=== PATIENT | female | born 1975 | race Hispanic/Latino ===

== ENCOUNTER 2018-02-04 08:31 | Inpatient (IN) | payer BC ==
[2018-01-31 15:59] LABS: BASOPHILS % (AUTO) 0.7 % (0.0-5.0); EOSINOPHILS % (AUTO) 4.7 % (0.0-8.0); HEMATOCRIT 31.5 % (36-48); LYMPHOCYTES % (AUTO) 25.2 % (21.0-51.0); MEAN CORPUSCULAR HEMOGLOBIN 28.1 pg (27.0-33.0); MEAN CORPUSCULAR HGB CONC 32.8 g/dL (32.0-36.0); MEAN CORPUSCULAR VOLUME 85.7 fL (79-99); MONOCYTES % (AUTO) 8.1 % (3.0-13.0); NEUTROPHILS % (AUTO) 61.3 % (40.0-77.0); PLATELET COUNT (AUTO) 315 K/uL (130-400); RED BLOOD CELL COUNT(AUTO) 3.67 MIL/uL (4.00-5.50); WHITE BLOOD COUNT (AUTO) 7.7 K/uL (4.8-10.8)
[2018-01-31 16:03] VITALS: BP 126/73
[2018-02-04] VITALS (19 sets, daily range): BP systolic 101–139; BP diastolic 58–84
[~2018-02-04] VITALS: Ht 160 cm; Wt 85.5 kg
[2018-02-04] MEDS: CEFAZOLIN SODIUM 1 GM VIAL IVP SCH ×2 (06:00→10:02)
[~2018-02-04 08:31] MED LIST: LACTATED RINGERS 1000ML 1,000 ML IV SCH
[2018-02-04] MEDS ORDERED: GLYCOPYRROLATE 0.2 MG/ML 5 ML VIAL ONE (09:37)
[2018-02-04] MEDS ORDERED: DEXAMETHASONE SOD PHOSPHATE 10MG/ML 1ML VIAL ONE (09:37)
[2018-02-04] MEDS ORDERED: LIDOCAINE PF 2% 5ML ABBOJECT ONE (09:37)
[2018-02-04] MEDS ORDERED: PROPOFOL 10 MG/ML 20ML VIAL IV ONE (09:38)
[2018-02-04] MEDS ORDERED: FENTANYL CITRATE PF 50 MCG/1 ML 2ML VIAL ONE ×3 (09:39→10:35)
[2018-02-04] MEDS ORDERED: MIDAZOLAM HCL 1 MG/ML 2ML VIAL ONE (09:39)
[2018-02-04] MEDS ORDERED: ROPIVACAINE 0.5% 5MG/ML 30ML IJ ONE (09:41)
[2018-02-04] MEDS ORDERED: LIDOCAINE HCL 4% LTA SOL 4 ML VIAL ONE (10:51)
[2018-02-04] MEDS ORDERED: BISACODYL 10 MG SUPP.RECT RC PRN (11:45)
[2018-02-04] MEDS ORDERED: MEPERIDINE-PF 25 MG/ML SYG ONE (11:53)
[2018-02-04] MEDS: PROMETHAZINE HCL 25 MG/ML 1ML AMPULE IM PRN ×2 (13:37→21:14)
[2018-02-04] MEDS: MEPERIDINE-PF 75 MG/ML SYG IM PRN ×3 (13:37→21:14)
[2018-02-04] MEDS: DEXTROSE 5%-LACTATED RINGERS 1,000 ML IV PRN ×2 (17:09→21:19)
[2018-02-05] VITALS (7 sets, daily range): BP systolic 111–146; BP diastolic 53–77
[2018-02-05] MEDS: ACETAMINOPHEN-CODEINE 300/30MG TAB PO PRN ×3 (04:08→16:06)
[2018-02-05 05:13] LABS: HEMATOCRIT 26.5 % (36-48); MEAN CORPUSCULAR HEMOGLOBIN 28.8 pg (27.0-33.0); MEAN CORPUSCULAR HGB CONC 33.7 g/dL (32.0-36.0); MEAN CORPUSCULAR VOLUME 85.6 fL (79-99); PLATELET COUNT (AUTO) 251 K/uL (130-400); RED CELL DISTRIBUTION WIDTH 20.2 % (11.0-15.5); WHITE BLOOD COUNT (AUTO) 11.4 K/uL (4.8-10.8)
[2018-02-05] MEDS: DEXTROSE 5%-LACTATED RINGERS 1,000 ML IV PRN (05:32)
[2018-02-05] MEDS ORDERED: ACETAMINOPHEN-CODEINE 300/30MG TAB PO PRN (08:30)
[2018-02-05] MEDS ORDERED: IBUPROFEN 800 MG TAB PO SCH (08:30)
[2018-02-05] MEDS: DOCUSATE SODIUM 100 MG CAP PO PRN ×2 (09:24→21:50)
[2018-02-05] MEDS: IBUPROFEN 800 MG TAB PO SCH ×2 (12:02→19:57)
[2018-02-05] MEDS: SIMETHICONE 80 MG TAB.CHEW PO PRN (21:49)
[2018-02-06] MEDS: IBUPROFEN 800 MG TAB PO SCH (03:43)
[2018-02-06 04:39] VITALS: BP 115/63
[2018-02-06 08:02] VITALS: BP 127/79
[2018-02-06] MEDS: SIMETHICONE 80 MG TAB.CHEW PO PRN (08:54)
[2018-02-06] MEDS: DOCUSATE SODIUM 100 MG CAP PO PRN (08:54)
[2018-02-06 11:32] VITALS: BP 122/74
== END 2018-02-06 14:55 | disposition home or self-care (01) | DRG 742 ==
LOC: DAHIP 08:31 → WSH 12:50
PROVIDERS: ADMIT Specialist; ATTEND Specialist
PROC: 0UT90ZZ Resection of Uterus, Open Approach (ICD-10-PCS; principal; 2018-02-04 10:16)
DX: D25.9 Leiomyoma of uterus, unspecified (principal); D62 Acute posthemorrhagic anemia; N92.0 Excessive and frequent menstruation with regular cycle; E66.9 Obesity, unspecified; Z90.49 Acquired absence of other specified parts of digestive tract; Z68.33 Body mass index [BMI] 33.0-33.9, adult; Z83.3 Family history of diabetes mellitus
CPT/HCPCS: 36415; 84703; 85025; 85027; 86850; 86900; 86901; 88307; A4218; A4344; J0690; J1100; J2001; J2175; J2250; J2550; J2704; J2795; J3010; J3490; J7120

== ENCOUNTER → 2019-07-01 | Outpatient (CLI) | payer BC | END | disposition home or self-care (01) | LOC: RAH 14:29 | PROVIDERS: ATTEND Specialist | DX: Z12.31 Encounter for screening mammogram for malignant neoplasm of breast (principal) | CPT/HCPCS: 77067 ==

== ENCOUNTER → 2019-07-13 | Outpatient (CLI) | payer BC | END | disposition home or self-care (01) | LOC: RAH 11:04 | PROVIDERS: ATTEND Specialist | DX: R92.2 Inconclusive mammogram (principal) | CPT/HCPCS: 76641 ==

== ENCOUNTER → 2021-02-28 | Outpatient (CLI) | payer OTHER | END | disposition home or self-care (01) | LOC: RAH 12:58 | PROVIDERS: ATTEND Specialist | DX: Z12.31 Encounter for screening mammogram for malignant neoplasm of breast (principal) | CPT/HCPCS: 77067 ==

== ENCOUNTER → 2022-08-01 | Outpatient (CLI) | payer OTHER | END | disposition home or self-care (01) | LOC: RAH 14:31 | PROVIDERS: ATTEND Obstetrics & Gynecology | DX: Z12.31 Encounter for screening mammogram for malignant neoplasm of breast (principal) | CPT/HCPCS: 77067 ==